=== PATIENT | male | born 1950 | race Caucasian/White ===

== ENCOUNTER 2017-06-14 20:46 | Inpatient (IN) | payer OTHER ==
[~2017-06-14] VITALS: Ht 170.2 cm; Wt 52.7 kg
[2017-06-14 21:08] LABS: BASOPHILS ABSOLUTE AUTO 0.03 K/mm3 (0.00-0.23); BASOPHILS PERCENT AUTO 0 % (0-2); EOSINOPHILS ABSOLUTE AUTO 0.03 K/mm3 (0.00-0.68); EOSINOPHILS PERCENT AUTO 0 % (0-6); Hematocrit 30.2 % (37.0-53.0); Hemoglobin 10.5 g/dL (13.5-17.5); IMMATURE GRAN ABSOLUTE AUTO 0.04 K/mm3 (0.00-0.10); IMMATURE GRAN PERCENT AUTO 1 % (0-1); LYMPHOCYTES PERCENT AUTO 15 % (21-46); MONOCYTES ABSOLUTE AUTO 1.35 K/mm3 (0.16-1.47); MONOCYTES PERCENT AUTO 17 % (4-13); Mean Corpuscular HGB 33.7 pg (26.0-34.0); Mean Corpuscular HGB Conc 34.8 g/dL (31.5-36.5); Mean Corpuscular Volume 97 fL (80-100); Mean Platelet Volume 9.8 fL (9.1-12.4); NEUTROPHILS ABSOLUTE AUTO 5.25 K/mm3 (1.96-9.15); NEUTROPHILS PERCENT AUTO 66 % (41-73); Platelet Count 227 K/mm3 (150-400); RDW Coefficient Variation 12.5 % (11.7-14.2); RDW Standard Deviation 44.1 fL (35.1-46.3); Red Blood Cell Count 3.12 M/mm3 (4.30-5.90)
[2017-06-14] MEDS ORDERED: ALBU90OI INH (21:21)
[2017-06-14] MEDS ORDERED: TUMS300 MG PO (21:22)
[2017-06-14] MEDS ORDERED: GABA100 PO (21:23)
[2017-06-14] MEDS ORDERED: LEVSOD50 PO (21:23)
[2017-06-14] MEDS ORDERED: PANT40 PO (21:23)
[2017-06-14] MEDS ORDERED: TAMS.4ER PO (21:24)
[2017-06-14] MEDS ORDERED: TRAZ100 PO (21:24)
[2017-06-14 21:36] LABS: Alanine Aminotransfer (ALT/SGP 25 U/L (12-78); Albumin, Blood 2.3 g/dL (3.4-5.0); Albumin/Globulin Ratio 0.8 (0.8-1.8); Alk Phos 61 U/L (50-136); Anion Gap 7 mmol/L (6-16); Aspartate Aminotrans (AST/SGOT 33 U/L (12-37); Bilirubin, Total 0.4 mg/dL (0.1-1.0); Blood Urea Nitrogen 20 mg/dL (8-24); Bun/Creatinine Ratio 24.9 (12.0-20.0); CO2, Blood 32 mmol/L (21-32); Calcium, Blood 7.5 mg/dL (8.5-10.1); Chloride, Blood 97 mmol/L (98-108); Globulin, Blood 2.8 g/dL (2.2-4.0); Glomerular Filtration Rate >60 (60-); Glucose, Blood 140 mg/dL (70-99); Potassium, Blood 2.8 mmol/L (3.5-5.5); Sodium, Blood 136 mmol/L (136-145); Total Protein, Blood 5.1 g/dL (6.4-8.2); Troponin I <0.015 ng/mL (0.000-0.040)
[2017-06-14 21:44] LABS: Source, Urine Clean Catch
[2017-06-14 21:47] LABS: Bilirubin, Urine Neg (Neg); Blood, Urine Neg (Neg); Glucose Qualitative, Urine 2+ (Neg); Ketones, Urine Neg (Neg); Leukocyte Esterase, Urine Neg (Neg); Nitrite, Urine Neg (Neg); Protein, Urine Neg (Neg); Urobilinogen, Urine 1+ (Normal)
[2017-06-14 21:49] LABS: Appearance, Urine Clear (Clear); Color, Urine Yellow (P-Yellow)
[2017-06-15 00:47] LABS: Influenza A Negative (NEGATIVE); Influenza B Negative (NEGATIVE)
[2017-06-15 01:01] LABS: Free Thyroxine 1.36 ng/dL (0.70-1.60); Magnesium, Blood 1.3 mg/dL (1.6-2.4); Thyroid Stimulating Hormone 1.7 uIU/mL (0.360-4.800); Triiodothyronine, Free 1.71 pg/mL (2.18-3.98)
[2017-06-15 06:43] LABS: BASOPHILS ABSOLUTE AUTO 0.02 K/mm3 (0.00-0.23); BASOPHILS PERCENT AUTO 0 % (0-2); EOSINOPHILS ABSOLUTE AUTO 0.01 K/mm3 (0.00-0.68); EOSINOPHILS PERCENT AUTO 0 % (0-6); Hematocrit 28.4 % (37.0-53.0); Hemoglobin 9.7 g/dL (13.5-17.5); IMMATURE GRAN ABSOLUTE AUTO 0.03 K/mm3 (0.00-0.10); IMMATURE GRAN PERCENT AUTO 1 % (0-1); LYMPHOCYTES ABSOLUTE AUTO 1.01 K/mm3 (0.84-5.20); LYMPHOCYTES PERCENT AUTO 16 % (21-46); MONOCYTES ABSOLUTE AUTO 0.87 K/mm3 (0.16-1.47); MONOCYTES PERCENT AUTO 13 % (4-13); Mean Corpuscular HGB 32.6 pg (26.0-34.0); Mean Corpuscular HGB Conc 34.2 g/dL (31.5-36.5); Mean Corpuscular Volume 95 fL (80-100); Mean Platelet Volume 10.1 fL (9.1-12.4); NEUTROPHILS ABSOLUTE AUTO 4.54 K/mm3 (1.96-9.15); NEUTROPHILS PERCENT AUTO 70 % (41-73); Platelet Count 210 K/mm3 (150-400); RDW Coefficient Variation 12.8 % (11.7-14.2); RDW Standard Deviation 44.4 fL (35.1-46.3); Red Blood Cell Count 2.98 M/mm3 (4.30-5.90); White Blood Cell Count 6.48 K/mm3 (4.00-11.30)
[2017-06-15 07:18] LABS: Anion Gap 9 mmol/L (6-16); Blood Urea Nitrogen 12 mg/dL (8-24); Bun/Creatinine Ratio 19.5 (12.0-20.0); CO2, Blood 28 mmol/L (21-32); Calcium, Blood 7.3 mg/dL (8.5-10.1); Chloride, Blood 100 mmol/L (98-108); Creatinine, Blood 0.62 mg/dL (0.60-1.20); Glomerular Filtration Rate >60 (60-); Glucose, Blood 136 mg/dL (70-99); Potassium, Blood 2.9 mmol/L (3.5-5.5); Sodium, Blood 137 mmol/L (136-145)
[2017-06-15 07:40] LABS: Magnesium, Blood 1.7 mg/dL (1.6-2.4)
[2017-06-15 07:41] LABS: Phosphorus, Blood 0.4 mg/dL (2.5-4.9)
[2017-06-15 08:34] LABS: U Amphetamine Screen Not Detected; U Barbituate Screen Not Detected; U Benzodiazapine Screen Not Detected; U Buprenorphine Screen Not Detected; U Cannabinoids Screen DETECTED; U Cocaine Screen Not Detected; U Methadone Screen Not Detected; U Methamphetamine Screen Not Detected; U Opiates Screen Not Detected; U Oxycodone Screen Not Detected; U Phencyclidine Screen Not Detected; U Propoxyphene Screen Not Detected
[2017-06-16 05:11] LABS: International Normalized Ratio 1.15
[2017-06-16 11:35] LABS: Anion Gap 6 mmol/L (6-16); Blood Urea Nitrogen 6 mg/dL (8-24); Bun/Creatinine Ratio 10.6 (12.0-20.0); CO2, Blood 28 mmol/L (21-32); Calcium, Blood 6.8 mg/dL (8.5-10.1); Chloride, Blood 106 mmol/L (98-108); Creatinine, Blood 0.56 mg/dL (0.60-1.20); Glomerular Filtration Rate >60 (60-); Glucose, Blood 103 mg/dL (70-99); Potassium, Blood 3.3 mmol/L (3.5-5.5); Sodium, Blood 140 mmol/L (136-145)
[2017-06-17 05:23] LABS: Anion Gap 6 mmol/L (6-16); Blood Urea Nitrogen 7 mg/dL (8-24); Bun/Creatinine Ratio 11.5 (12.0-20.0); CO2, Blood 31 mmol/L (21-32); Calcium, Blood 7.1 mg/dL (8.5-10.1); Chloride, Blood 101 mmol/L (98-108); Creatinine, Blood 0.61 mg/dL (0.60-1.20); Glomerular Filtration Rate >60 (60-); Glucose, Blood 94 mg/dL (70-99); Potassium, Blood 3.8 mmol/L (3.5-5.5); Sodium, Blood 138 mmol/L (136-145)
[2017-06-18 06:15] LABS: BASOPHILS ABSOLUTE AUTO 0.04 K/mm3 (0.00-0.23); BASOPHILS PERCENT AUTO 1 % (0-2); EOSINOPHILS ABSOLUTE AUTO 0.12 K/mm3 (0.00-0.68); EOSINOPHILS PERCENT AUTO 2 % (0-6); Hematocrit 29.8 % (37.0-53.0); Hemoglobin 10.1 g/dL (13.5-17.5); IMMATURE GRAN ABSOLUTE AUTO 0.05 K/mm3 (0.00-0.10); IMMATURE GRAN PERCENT AUTO 1 % (0-1); LYMPHOCYTES ABSOLUTE AUTO 1.28 K/mm3 (0.84-5.20); LYMPHOCYTES PERCENT AUTO 18 % (21-46); MONOCYTES ABSOLUTE AUTO 0.82 K/mm3 (0.16-1.47); MONOCYTES PERCENT AUTO 12 % (4-13); Mean Corpuscular HGB 33.2 pg (26.0-34.0); Mean Corpuscular HGB Conc 33.9 g/dL (31.5-36.5); Mean Corpuscular Volume 98 fL (80-100); Mean Platelet Volume 9.8 fL (9.1-12.4); NEUTROPHILS PERCENT AUTO 67 % (41-73); Platelet Count 360 K/mm3 (150-400); RDW Coefficient Variation 13.2 % (11.7-14.2); RDW Standard Deviation 47.2 fL (35.1-46.3); Red Blood Cell Count 3.04 M/mm3 (4.30-5.90); White Blood Cell Count 7.01 K/mm3 (4.00-11.30)
[2017-06-18 06:25] LABS: International Normalized Ratio 1.06
[2017-06-19 05:04] LABS: BASOPHILS ABSOLUTE AUTO 0.01 K/mm3 (0.00-0.23); BASOPHILS PERCENT AUTO 0 % (0-2); EOSINOPHILS PERCENT AUTO 0 % (0-6); Hematocrit 30.3 % (37.0-53.0); Hemoglobin 10.3 g/dL (13.5-17.5); IMMATURE GRAN ABSOLUTE AUTO 0.04 K/mm3 (0.00-0.10); IMMATURE GRAN PERCENT AUTO 1 % (0-1); LYMPHOCYTES ABSOLUTE AUTO 0.36 K/mm3 (0.84-5.20); LYMPHOCYTES PERCENT AUTO 5 % (21-46); MONOCYTES ABSOLUTE AUTO 0.06 K/mm3 (0.16-1.47); MONOCYTES PERCENT AUTO 1 % (4-13); Mean Corpuscular Volume 97 fL (80-100); Mean Platelet Volume 9.7 fL (9.1-12.4); NEUTROPHILS ABSOLUTE AUTO 6.72 K/mm3 (1.96-9.15); NEUTROPHILS PERCENT AUTO 94 % (41-73); Platelet Count 379 K/mm3 (150-400); RDW Coefficient Variation 13.2 % (11.7-14.2); RDW Standard Deviation 46.4 fL (35.1-46.3); Red Blood Cell Count 3.12 M/mm3 (4.30-5.90); White Blood Cell Count 7.19 K/mm3 (4.00-11.30)
[2017-06-19 05:25] LABS: Anion Gap 8 mmol/L (6-16); Blood Urea Nitrogen 13 mg/dL (8-24); Bun/Creatinine Ratio 21.2 (12.0-20.0); CO2, Blood 27 mmol/L (21-32); Calcium, Blood 8.6 mg/dL (8.5-10.1); Chloride, Blood 103 mmol/L (98-108); Creatinine, Blood 0.61 mg/dL (0.60-1.20); Glomerular Filtration Rate >60 (60-); Glucose, Blood 216 mg/dL (70-99); Potassium, Blood 4.1 mmol/L (3.5-5.5); Sodium, Blood 138 mmol/L (136-145)
[2017-06-19] MEDS ORDERED: Albuterol2.5 MG/0.5 INH (10:49)
[2017-06-19] MEDS ORDERED: ACET325 PO (10:50)
[2017-06-19] MEDS ORDERED: BENZ100A PO (10:51)
== END 2017-06-19 11:35 | disposition home or self-care (01) | DRG 181 ==
LOC: ER 20:46 → PCU 23:00 → ICUW 23:00 → PCU 06-15 00:37 → ICUW 06-15 11:37 → PCU 06-15 16:04
PROVIDERS: Emergency Medicine; Family Medicine; Hospitalist; Internal Medicine; Internal Medicine Critical Care Medicine
PROC: 0BD78ZX Extraction of Left Main Bronchus, Via Natural or Artificial Opening Endoscopic, Diagnostic (ICD-10-PCS; principal; 2017-06-18 17:00)
DX: C34.12 Malignant neoplasm of upper lobe, left bronchus or lung (principal); E46 Unspecified protein-calorie malnutrition; I95.9 Hypotension, unspecified; I85.00 Esophageal varices without bleeding; R64 Cachexia; E83.39 Other disorders of phosphorus metabolism; E83.42 Hypomagnesemia; K70.30 Alcoholic cirrhosis of liver without ascites; J44.0 Chronic obstructive pulmonary disease with (acute) lower respiratory infection; F10.20 Alcohol dependence, uncomplicated; J20.9 Acute bronchitis, unspecified; E03.9 Hypothyroidism, unspecified
CPT/HCPCS: 36415; 71260; 80048; 80053; 80069; 81003; 82272; 82533; 82728; 83540; 83550; 83605; 83735; 83880; 84100; 84439; 84443; 84481; 84484; 85025; 85379; 85610; 87040; 87070; 87205; 87804; 88108; 88305; 88341; 88342; 93005; 93010; 94640; 94760; 96365; 96366; 97110; 97116; 97162; 97530; 99285; G8978; G8979; J1650; J1940; J2001; J2250; J2370; J2930; J3010; J3411; J3475; J3480; J7040; J7042; J7050; J7120; P9041; Q2038; Q9967

== ENCOUNTER 2019-08-03 15:33 | Inpatient (IN) | payer OTHER ==
[~2019-08-03] VITALS: Ht 170.2 cm; Wt 50.2 kg
[~2019-08-03 15:33] MED LIST: ACET325 PO; ALBU90OI INH; Albuterol2.5 MG/0.5 INH; BENZ100A PO; GABA100 PO; LEVSOD50 PO; PANT40 PO; TAMS.4ER PO; TRAZ100 PO; TUMS500 MG PO
[2019-08-03] MEDS ORDERED: MELATONIN5 M1 PO (15:58)
[2019-08-03 17:18] LABS: BASOPHILS ABSOLUTE AUTO 0.06 K/mm3 (0.00-0.23); BASOPHILS PERCENT AUTO 1 % (0-2); EOSINOPHILS ABSOLUTE AUTO 0.09 K/mm3 (0.00-0.68); EOSINOPHILS PERCENT AUTO 1 % (0-6); Hematocrit 39.1 % (37.0-53.0); Hemoglobin 12.7 g/dL (13.5-17.5); IMMATURE GRAN ABSOLUTE AUTO 0.04 K/mm3 (0.00-0.10); IMMATURE GRAN PERCENT AUTO 0 % (0-1); LYMPHOCYTES ABSOLUTE AUTO 1.14 K/mm3 (0.84-5.20); LYMPHOCYTES PERCENT AUTO 9 % (21-46); MONOCYTES ABSOLUTE AUTO 0.88 K/mm3 (0.16-1.47); MONOCYTES PERCENT AUTO 7 % (4-13); Mean Corpuscular HGB 33.2 pg (26.0-34.0); Mean Corpuscular HGB Conc 32.5 g/dL (31.5-36.5); Mean Corpuscular Volume 102 fL (80-100); Mean Platelet Volume 9.5 fL (9.1-12.4); NEUTROPHILS ABSOLUTE AUTO 10.12 K/mm3 (1.96-9.15); NEUTROPHILS PERCENT AUTO 82 % (41-73); Platelet Count 218 K/mm3 (150-400); RDW Coefficient Variation 13.3 % (11.7-14.2); Red Blood Cell Count 3.82 M/mm3 (4.30-5.90); White Blood Cell Count 12.33 K/mm3 (4.00-11.30)
[2019-08-03 17:28] LABS: Alanine Aminotransfer (ALT/SGP 33 U/L (12-78); Albumin, Blood 3.3 g/dL (3.4-5.0); Albumin/Globulin Ratio 0.8 (0.8-1.8); Alk Phos 121 U/L (50-136); Anion Gap 3 mmol/L (6-16); Aspartate Aminotrans (AST/SGOT 46 U/L (12-37); Bilirubin, Total 0.9 mg/dL (0.1-1.0); Blood Urea Nitrogen 12 mg/dL (8-24); CO2, Blood 33 mmol/L (21-32); Calcium, Blood 9.5 mg/dL (8.5-10.1); Chloride, Blood 102 mmol/L (98-108); Globulin, Blood 4.4 g/dL (2.2-4.0); Glomerular Filtration Rate >60 (60-); Glucose, Blood 109 mg/dL (70-99); Potassium, Blood 3.8 mmol/L (3.5-5.5); Sodium, Blood 138 mmol/L (136-145); Total Protein, Blood 7.7 g/dL (6.4-8.2); Troponin I <0.015 ng/mL (0.000-0.040)
[2019-08-03 18:44] LABS: Influenza A Negative (NEGATIVE); Influenza B Negative (NEGATIVE)
--- NOTE | 2019-08-04 04:07 | NUR ---
SHIFT SUMMARY PT WAS NEW ER ADMIT THIS SHIFT, REPORT REC FROM TOLL BOOTH OPERATOR, PT TO ROOM @ 2250, STATED WITHIN MINUTES THAT HE FELT HE MAY BE EXPERIENCING WITHDRAWL, PT STATES THAT HE HAS 5-6 OR MORE DRINKS DAILY BUT HASN'T X2 DAYS. CIWA OF 12 REPORTED TO RUBEN @ 4200, LIBRIUM ADMIN, NO NEW ORDERS REC, TREMOURS IMPROVED, HEADACHE IMPROVED, PT BEDRESTING AT THIS TIME, NO OTHER C/O ANY KIND, WILL CONT TO MONITOR UNTIL REPORT GIVEN TO DAY RN.
[2019-08-04 05:15] LABS: Adenovirus Not Detected (NOT DETECT); Coronavirus 229E Not Detected (NOT DETECT)
[2019-08-04 05:16] LABS: Coronavirus HKU1 Not Detected (NOT DETECT); Coronavirus NL63 Not Detected (NOT DETECT); Coronavirus OC43 Not Detected (NOT DETECT); Human Metapneumovirus Not Detected (NOT DETECT); Human Rhinovirus/Enterovirus Not Detected (NOT DETECT); Influenza B Not Detected (NOT DETECT); Parainfluenza Virus 1 Not Detected (NOT DETECT); Parainfluenza Virus 2 Not Detected (NOT DETECT); Parainfluenza Virus 3 Not Detected (NOT DETECT); Parainfluenza Virus 4 Not Detected (NOT DETECT)
[2019-08-04 05:17] LABS: Bordetella pertussis Not Detected (NOT DETECT); Chlamydophila pneumoniae Not Detected (NOT DETECT); Influenza A/2009-H1 Not Detected (NOT DETECT); Influenza A/H1 Not Detected (NOT DETECT); Influenza A/H3 Not Detected (NOT DETECT); Mycoplasma pneumoniae Not Detected (NOT DETECT); Respiratory Syncytial Virus Not Detected (NOT DETECT)
[2019-08-04 07:19] LABS: Hematocrit 39.4 % (37.0-53.0); Hemoglobin 12.8 g/dL (13.5-17.5); Mean Corpuscular HGB 32.9 pg (26.0-34.0); Mean Corpuscular HGB Conc 32.5 g/dL (31.5-36.5); Mean Corpuscular Volume 101 fL (80-100); Platelet Count 194 K/mm3 (150-400); RDW Standard Deviation 48.2 fL (35.1-46.3); Red Blood Cell Count 3.89 M/mm3 (4.30-5.90); White Blood Cell Count 7.66 K/mm3 (4.00-11.30)
[2019-08-04 07:28] LABS: Alanine Aminotransfer (ALT/SGP 39 U/L (12-78); Albumin/Globulin Ratio 0.7 (0.8-1.8); Alk Phos 111 U/L (50-136); Anion Gap 5 mmol/L (6-16); Aspartate Aminotrans (AST/SGOT 67 U/L (12-37); Bilirubin, Total 0.8 mg/dL (0.1-1.0); Blood Urea Nitrogen 14 mg/dL (8-24); Bun/Creatinine Ratio 26.2 (12.0-20.0); CO2, Blood 33 mmol/L (21-32); Calcium, Blood 9.1 mg/dL (8.5-10.1); Chloride, Blood 99 mmol/L (98-108); Creatinine, Blood 0.54 mg/dL (0.60-1.20); Globulin, Blood 4.5 g/dL (2.2-4.0); Glomerular Filtration Rate >60 (60-); Glucose, Blood 125 mg/dL (70-99); Potassium, Blood 3.7 mmol/L (3.5-5.5); Sodium, Blood 137 mmol/L (136-145); Total Protein, Blood 7.5 g/dL (6.4-8.2)
--- NOTE | 2019-08-04 17:35 | NUR ---
Shift Summary A/Ox3, pleasant and cooperative. Patient uses call light appropriately. Medicated for 5-6/10 headache x 2, CIWA score of about 11 x 1 per emar with good results. So far, CIWA has remained < 5. Denies any other pain, nausea, vomiting at this time. Patient eager to go home. Continues to produce opaque thick sputum, medicated with Robitussin x 1. No other concerns at this time. Will continue to monitor.
--- NOTE | 2019-08-05 07:19 | NUR ---
68 year old [employer] [place] with hx of lung cancer and latent TB carrier was admitted with COPD and ETOH withdrawl. Medicated x 1 for CIWA score with 50 mg librium with helpful effect. PT has hx of alcoholism tx 1.5 years ago with 6 months sobriety. Encourarage ETOH and tobacco cessation. Has Sister who asks to be involved in DC plan. Lives alone and has caregiver 2 days a week.
--- NOTE | 2019-08-05 20:05 | NUR ---
SHIFT SUMMARY PT RESTING QUIETLY DURING SHIFT REPORT. APPEARED WEAK, BUT VERY PLEASANT AND GRATEFUL FOR CARE. PT REQUESTED RT TX'S A COUPLE OF TIMES TODAY; HX OF ADVANCED COPE. PT ALSO REPORTED PAIN AND NAUSEA, MIDSTERNUM, AFTER EATING A COUPLE OF TIMES. PT WITH HX OF ETOH ABUSE AND POSSIBLE ULCERS. DR STEVENSON IN TO SEE PT THIS AM. REQUESTED TO SEE PT TX BEFORE D/C. PT VERY WEAK AND UNSTEADY GETTING UP AND USING FWW. PT/OT ORDERED TO ASSIST PT IN GETTING STRONGER AND MORE MOBILE PT REPORTED THAT HE LIVES BY HIMSELF. PT/OT ORDERED, BUT UNCLEAR IF THEY WERE ABLE TO SEE PT TODAY OR NOT. PT HAS BEEN CONTINENT AND INCONTINENT, ATTEMPTING TO USE URINAL IN BED. PT ALSO WITH POOR APPETITE; OFFERED NUTRITIONAL CHOICES. PT'S SISTER IN TO SEE HIM TODAY. PT REPORTED THAT SISTER LIVES ONE MILE FROM HIM. REQUESTED COUGH MED FOR HS. DENIED FURTHER NEEDS. REPORT GIVEN TO ONCOMING SHIFT.
--- NOTE | 2019-08-05 22:50 | NUR ---
RT IN FOR BREATHING TX. PATIENT NOW RESTING IN BED. CALL LIGHT IN REACH.
--- NOTE | 2019-08-06 03:16 | NUR ---
SHIFT SUMMARY PATIENT HAD NO ACUTE CHANGES OBSERVED THIS SHIFT. AXOX 3 AND ONE ASSIST WITH FWW TO BSC. SOB W/EXERTION. USES URINAL AT BEDSIDE. VSS/AFEBRILE. DENIES PAIN AND N/V. REPORTED COUGH X TWO AND GUAIFENESIN 10 mL GIVEN PER EMAR PER EVENT. PATIENT REPORTED RELIEF AND ABLE TO SLEEP. RT IN FOR MULTIPLE BREATHING TX. USES O2 2.5 L PRN AT NIGHT; NOT THIS SHIFT. CALL LIGHT IN REACH. BED IN LOWEST POSITION. WILL CONTINUE TO MONITOR UNTIL DAY SHIFT NURSE ASSUMES CARE.
--- NOTE | 2019-08-06 08:32 | NUR ---
CHARTING HAZARDOUS SUBSTANCES ENGINEER 2 STUDENT
--- NOTE | 2019-08-06 19:05 | NUR ---
NO ACUTE CHANGES NOTED THIS SHIFT, WILL CONTINUE TO MONITOR AND REPORT TO ONCOMING RN
--- NOTE | 2019-08-06 22:10 | NUR ---
PATIENT RESTING IN BED. PATIENT UP WITH ONE ASSIST TO BR. PATIENT NOT REMEMBERING TO PULL CORD LIGHT IN BR WHEN FINISHED. PATIENT REMINDED AND ASSISTED BACK INTO BED. DENIES PAIN AND N/V. REPORTS COUGH AT THIS TIME. CALL LIGHT IN REACH. BED ALARM ACTIVATED.
--- NOTE | 2019-08-07 03:16 | NUR ---
SHIFT SUMMARY PATIENT HAD NO ACUTE CHANGES OBSERVED. AXOX 3 AND ONE ASSIST TO BR. USES URINAL AT BS. TAKES MEDICATION WHOLE WITH WATER. PIV REMAINS INTACT. VSS/AFEBRILE. DENIES PAIN AND N/V. REPORTED COUGH AND GUAIFENESIN GIVEN PER EMAR. RT IN FOR BREATHING TX. SLEPT AFTER WATCHING TV. COOPERATIVE WITH CARE. CALL LIGHT IN REACH. BED IN LOWEST POSITION. WILL CONTINUE TO MONITOR UNTIL DAY SHIFT NURSE ASSUMES CARE.
[2019-08-07] MEDS ORDERED: FLUTICASONE-SA1 EAC1 INH (10:56)
[2019-08-07] MEDS ORDERED: Prednisone10 MG PO (10:57)
--- NOTE | 2019-08-07 16:54 | NUR ---
DISCHARGE NOTE- VERBAL AND WRITTEN DISCHARGE INSTRUCTIONS PROVIDED AND THE PT AND HIS SISTER ACKNOWLEDGED UNDERSTANDING OF THEM, IV DC'D AT THE TIME OF DISCHARGE AND PT ESCORTED OUT VIA WC BY THE GATHERING WORKER. NO FURTHER QUESTIONS AT THE TIME OF DISCHARGE.
== END 2019-08-07 15:25 | disposition home health service (06) | DRG 189 ==
LOC: ER 15:33 → MEDS 21:09 → ENPENDDIS 08-07 10:00 → MEDS 08-07 15:25
PROVIDERS: Physician Assistant; ADMIT Internal Medicine
DX: J96.21 Acute and chronic respiratory failure with hypoxia (principal); E43 Unspecified severe protein-calorie malnutrition; J44.1 Chronic obstructive pulmonary disease with (acute) exacerbation; F10.239 Alcohol dependence with withdrawal, unspecified; Z68.1 Body mass index [BMI] 19.9 or less, adult; B96.3 Hemophilus influenzae [H. influenzae] as the cause of diseases classified elsewhere; F32.9 Major depressive disorder, single episode, unspecified; K70.30 Alcoholic cirrhosis of liver without ascites; K21.9 Gastro-esophageal reflux disease without esophagitis; I25.10 Atherosclerotic heart disease of native coronary artery without angina pectoris; F17.210 Nicotine dependence, cigarettes, uncomplicated; Z86.73 Personal history of transient ischemic attack (TIA), and cerebral infarction without residual deficits; Z99.81 Dependence on supplemental oxygen
CPT/HCPCS: 0099U; 36415; 71046; 80053; 84145; 84484; 85025; 85027; 87070; 87077; 87185; 87205; 87804; 93005; 93010; 94010; 94640; 94644; 94664; 94667; 94760; 97110; 97116; 97162; 97165; 97530; 97535; 98960; 99285-25; 99407; J1650; J2405; J2930; J7512

== ENCOUNTER 2019-08-30 12:16 | Observation (INO) | payer OTHER, MEDICARE ==
[~2019-08-30] VITALS: Ht 167.6 cm; Wt 49.8 kg
[~2019-08-30 12:16] MED LIST changes: +FLUTICASONE-SA1 EAC1 INH; -GABA100 PO; +GABA400 PO; +MELATONIN5 M1 PO; +Prednisone10 MG PO
[2019-08-30 13:01] LABS: BASOPHILS ABSOLUTE AUTO 0.06 K/mm3 (0.00-0.23); BASOPHILS PERCENT AUTO 1 % (0-2); EOSINOPHILS ABSOLUTE AUTO 0.14 K/mm3 (0.00-0.68); EOSINOPHILS PERCENT AUTO 2 % (0-6); Hemoglobin 15.6 g/dL (13.5-17.5); IMMATURE GRAN ABSOLUTE AUTO 0.02 K/mm3 (0.00-0.10); IMMATURE GRAN PERCENT AUTO 0 % (0-1); LYMPHOCYTES ABSOLUTE AUTO 2.54 K/mm3 (0.84-5.20); LYMPHOCYTES PERCENT AUTO 27 % (21-46); MONOCYTES ABSOLUTE AUTO 0.72 K/mm3 (0.16-1.47); MONOCYTES PERCENT AUTO 8 % (4-13); Mean Corpuscular HGB 31.7 pg (26.0-34.0); Mean Corpuscular HGB Conc 33.2 g/dL (31.5-36.5); Mean Corpuscular Volume 96 fL (80-100); Mean Platelet Volume 9.3 fL (9.1-12.4); NEUTROPHILS ABSOLUTE AUTO 6.08 K/mm3 (1.96-9.15); NEUTROPHILS PERCENT AUTO 64 % (41-73); Platelet Count 414 K/mm3 (150-400); RDW Coefficient Variation 13.2 % (11.7-14.2); RDW Standard Deviation 46.5 fL (35.1-46.3); Red Blood Cell Count 4.92 M/mm3 (4.30-5.90); White Blood Cell Count 9.56 K/mm3 (4.00-11.30)
[2019-08-30 13:25] LABS: Alanine Aminotransfer (ALT/SGP 36 U/L (12-78); Albumin, Blood 3.4 g/dL (3.4-5.0); Albumin/Globulin Ratio 0.8 (0.8-1.8); Alk Phos 106 U/L (50-136); Anion Gap 11 mmol/L (6-16); Aspartate Aminotrans (AST/SGOT 44 U/L (12-37); Bilirubin, Total 0.5 mg/dL (0.1-1.0); Blood Urea Nitrogen 10 mg/dL (8-24); Bun/Creatinine Ratio 13.7 (12.0-20.0); CO2, Blood 27 mmol/L (21-32); Chloride, Blood 100 mmol/L (98-108); Creatinine, Blood 0.73 mg/dL (0.60-1.20); Globulin, Blood 4.5 g/dL (2.2-4.0); Glomerular Filtration Rate >60 (60-); Glucose, Blood 113 mg/dL (70-99); Potassium, Blood 3.9 mmol/L (3.5-5.5); Sodium, Blood 138 mmol/L (136-145); Total Protein, Blood 7.9 g/dL (6.4-8.2); Troponin I <0.015 ng/mL (0.000-0.040)
[2019-08-30] MEDS ORDERED: BUDE6HFA INH (13:51)
[2019-08-30 14:58] LABS: Magnesium, Blood 1.8 mg/dL (1.6-2.4); Phosphorus, Blood 3.1 mg/dL (2.5-4.9)
--- NOTE | 2019-08-30 17:03 | NUR ---
ADMIT REPORT RECEIVED FROM ER. PT ARRIVED VIA GURNEY ACCOMPANIED BY RN. PT AWAKE AND ALERT. HE REQUESTED TO BE SLID TO NEW BED. USED SLIDER AND 3 ASSIST. DIRECTOR OF MARKETING AND PROMOTIONS PLACED PER ORDER. AFIB HR 150BPM NOTED ON MONITOR. BP STABLE. CARDIZEM GTT STARTED AT 15MG/HR. PT HAD RECEIVED 1 BOLUS IN ER @1230. PT UP TO BSC WITH 1 ASSIST. WEAK AND SHAKE. VOIDED SMALL AMOUNT OF DARK, YELLOW URINE. CALLED DR NESBITT TO CLARIFY ORDERS AND REPORT LACTIC ACID LEVEL. ORDERS RECEIVED. DR NESBITT ORDERED BANANAN BAG. PT HAS VERY SMALL, FRAGILE VEINS. HE HAS NEEDED A POWER GLIDE IN THE PAST. CALLED PROCEDURE NURSE AND REQUESTED A POWER GLIDE PLACMENT FOR INCOMPATIBLE MEDICATIONS AND LABS. CONTINEU POT.
[2019-08-30 19:20] LABS: Adenovirus Not Detected (NOT DETECT); Bordetella pertussis Not Detected (NOT DETECT); Chlamydophila pneumoniae Not Detected (NOT DETECT); Coronavirus 229E Not Detected (NOT DETECT); Coronavirus HKU1 Not Detected (NOT DETECT); Coronavirus NL63 Not Detected (NOT DETECT); Coronavirus OC43 Not Detected (NOT DETECT); Human Metapneumovirus Not Detected (NOT DETECT); Human Rhinovirus/Enterovirus Not Detected (NOT DETECT); Influenza A/2009-H1 Not Detected (NOT DETECT); Influenza A/H1 Not Detected (NOT DETECT); Influenza A/H3 Not Detected (NOT DETECT); Influenza B Not Detected (NOT DETECT); Mycoplasma pneumoniae Not Detected (NOT DETECT); Parainfluenza Virus 1 Not Detected (NOT DETECT); Parainfluenza Virus 2 Not Detected (NOT DETECT); Parainfluenza Virus 3 Not Detected (NOT DETECT); Parainfluenza Virus 4 Not Detected (NOT DETECT); Respiratory Syncytial Virus Not Detected (NOT DETECT)
--- NOTE | 2019-08-30 22:13 | NUR ---
CHECKED ON PT DUE TO SUSTAINING IN 120'S AND SHOOTING UP INTO THE 130'S VIA TT. APICAL HR CHECK SHOWS 104 HR. PT GRUNTING AND C/O ABDOMINAL PAIN 6/10 ON INSPIRATION, STATES HE HAS NEVER FELT THAT BEFORE. PLACED ON 02 AT 1L/NC FOR WOB. DENIES FURTHER NEEDS OR WANTS AT THIS TIME. SAFETY MEASUES IN PLACE. WILL CONTINUE TO MONITOR.
--- NOTE | 2019-08-31 02:37 | NUR ---
RESTING WITH EYES CLOSED IN SEMI FOWLERS. CADIZEM TITRATED BACK TO 5MG/HR AFTER HR LOWERED FROM 120'S/130'S TO 70'S. DENEIS FURTHER NEEDS OR WANTS AT THIS TIME. SAFETY MEASURES IN PLACE. WILL CONTINUE TO MONITOR.
[2019-08-31 05:08] LABS: BASOPHILS ABSOLUTE AUTO 0.01 K/mm3 (0.00-0.23); BASOPHILS PERCENT AUTO 0 % (0-2); EOSINOPHILS PERCENT AUTO 0 % (0-6); Hematocrit 35.4 % (37.0-53.0); IMMATURE GRAN ABSOLUTE AUTO 0.02 K/mm3 (0.00-0.10); IMMATURE GRAN PERCENT AUTO 0 % (0-1); LYMPHOCYTES ABSOLUTE AUTO 0.88 K/mm3 (0.84-5.20); LYMPHOCYTES PERCENT AUTO 14 % (21-46); MONOCYTES ABSOLUTE AUTO 0.43 K/mm3 (0.16-1.47); MONOCYTES PERCENT AUTO 7 % (4-13); Mean Corpuscular HGB 31.9 pg (26.0-34.0); Mean Corpuscular HGB Conc 33.9 g/dL (31.5-36.5); Mean Corpuscular Volume 94 fL (80-100); Mean Platelet Volume 9.7 fL (9.1-12.4); NEUTROPHILS ABSOLUTE AUTO 4.99 K/mm3 (1.96-9.15); NEUTROPHILS PERCENT AUTO 79 % (41-73); Platelet Count 309 K/mm3 (150-400); RDW Coefficient Variation 12.7 % (11.7-14.2); RDW Standard Deviation 44.4 fL (35.1-46.3); Red Blood Cell Count 3.76 M/mm3 (4.30-5.90); White Blood Cell Count 6.33 K/mm3 (4.00-11.30)
[2019-08-31 05:30] LABS: Anion Gap 6 mmol/L (6-16); Blood Urea Nitrogen 12 mg/dL (8-24); Bun/Creatinine Ratio 18.2 (12.0-20.0); CO2, Blood 27 mmol/L (21-32); Chloride, Blood 104 mmol/L (98-108); Creatinine, Blood 0.66 mg/dL (0.60-1.20); Glomerular Filtration Rate >60 (60-); Glucose, Blood 130 mg/dL (70-99); Magnesium, Blood 2.1 mg/dL (1.6-2.4); Phosphorus, Blood 2.3 mg/dL (2.5-4.9); Potassium, Blood 4.4 mmol/L (3.5-5.5); Sodium, Blood 137 mmol/L (136-145); Troponin I <0.015 ng/mL (0.000-0.040)
--- NOTE | 2019-08-31 06:11 | NUR ---
SHIFT SUMMARY LYING WITH EYES CLOSED IN SEMI FOWLERS, HAS RESTED WELL. ABLE TO REPOSITION SELF IN BED. HR HAS FLUCTUATED THROUGH SHIFT, HR INCREASED TO 120'S SUSTAINED, BUT THEN WOULD REACH 130'S. CARDIZEM TITRATED TO 10MG/HR UNTIL HR SUSTAINED IN THE 70'S, THEN WAS TITRATED BACK TO 5MG/HR. HAS DENIES SOB OR C/P. DENIES FURTHER NEEDS OR WANTS AT THIS TIME. SAFETY MEASURES IN PLACE. WILL GIVE HAND OFF TO ONCOMING SHIFT USING SBAR DURING BEDSIDE REPORT.
--- NOTE | 2019-08-31 18:37 | NUR ---
NOTE PT ALERT AND ORIENTED. AFIB. RATE CONTROLLED. TRANSITIONED FROM CARIDZEM GTT TO PO. PT BP STABLE. CIWA LESS THAN 4 ALL DAY. PT DID ASK FOR LIBRIUM FOR "THE SHAKES". MEDICATED WITH LIBRIUM 25MG X1. EFFECTIVE. PT EXPRESSED DESIRE TO GO TO ETOH REHAB. [facility]. HE CALLED HIS PLANER OPERATOR TO REQUEST TREATMENT. DENIED PAIN. NO DIARRHEA. UNABLE TO SEND CDIFF R/O. H/L. CONTINUE POT.
--- NOTE | 2019-08-31 21:31 | NUR ---
CODE STATUS Had conversation with pt at start of shift regarding code status. In chart, pt orders state DNR and DNR wrist band in place. Upon conversation with pt, he states he would like to change code status to Full code. Pt states he would like CPR, Medications, Defib, and intubation. He states "I just don't want to be a vegateble". pt is fully alert and oriented. Provider called and updated on pt wishes. Code status order changed at this time. DNR wrist band removed.
[2019-09-01 05:10] LABS: BASOPHILS ABSOLUTE AUTO 0.01 K/mm3 (0.00-0.23); BASOPHILS PERCENT AUTO 0 % (0-2); EOSINOPHILS PERCENT AUTO 0 % (0-6); Hematocrit 34.9 % (37.0-53.0); Hemoglobin 11.7 g/dL (13.5-17.5); IMMATURE GRAN ABSOLUTE AUTO 0.03 K/mm3 (0.00-0.10); IMMATURE GRAN PERCENT AUTO 0 % (0-1); LYMPHOCYTES ABSOLUTE AUTO 1.23 K/mm3 (0.84-5.20); LYMPHOCYTES PERCENT AUTO 11 % (21-46); MONOCYTES ABSOLUTE AUTO 0.81 K/mm3 (0.16-1.47); MONOCYTES PERCENT AUTO 7 % (4-13); Mean Corpuscular HGB 32.6 pg (26.0-34.0); Mean Corpuscular HGB Conc 33.5 g/dL (31.5-36.5); Mean Platelet Volume 9.6 fL (9.1-12.4); NEUTROPHILS ABSOLUTE AUTO 9.47 K/mm3 (1.96-9.15); NEUTROPHILS PERCENT AUTO 82 % (41-73); Platelet Count 314 K/mm3 (150-400); RDW Coefficient Variation 12.7 % (11.7-14.2); RDW Standard Deviation 45.7 fL (35.1-46.3); Red Blood Cell Count 3.59 M/mm3 (4.30-5.90); White Blood Cell Count 11.55 K/mm3 (4.00-11.30)
[2019-09-01 05:11] LABS: Mean Corpuscular Volume 97 fL (80-100)
--- NOTE | 2019-09-01 05:26 | NUR ---
Shift Summary Pt with no acute events overnight. Pt remains in a-fib, rate was highests this shift in the 80's and has averaged in 60's. PO cardizem and PO metoprolol given at approx 2215 (late d/t low BP at 2100). Pt sleeping approx 9 hrs this shift. VSS. Alert and oriented, pleasant, calm and cooperative with care. Pt CIWA has been 4-6 this shift, ativan given per pt request x1 this shift. No acute concerns to note and no changes from initial shift assessment. Will continue to monitor.
[2019-09-01 05:28] LABS: Anion Gap 5 mmol/L (6-16); Blood Urea Nitrogen 12 mg/dL (8-24); Bun/Creatinine Ratio 17.1 (12.0-20.0); CO2, Blood 28 mmol/L (21-32); Calcium, Blood 8.4 mg/dL (8.5-10.1); Chloride, Blood 106 mmol/L (98-108); Glomerular Filtration Rate >60 (60-); Glucose, Blood 114 mg/dL (70-99); Magnesium, Blood 2.1 mg/dL (1.6-2.4); Phosphorus, Blood 2.3 mg/dL (2.5-4.9); Potassium, Blood 3.8 mmol/L (3.5-5.5); Sodium, Blood 139 mmol/L (136-145)
[2019-09-01] MEDS ORDERED: ACET325 PO (09:46)
[2019-09-01] MEDS ORDERED: DILT30 PO (09:49)
[2019-09-01] MEDS ORDERED: FAMO20 PO (09:54)
[2019-09-01] MEDS ORDERED: LACT PO (09:54)
[2019-09-01] MEDS ORDERED: LEVFLO500 PO (09:55)
[2019-09-01] MEDS ORDERED: LOPE2C PO (09:56)
[2019-09-01] MEDS ORDERED: METO25ER PO (09:58)
[2019-09-01] MEDS ORDERED: Nicoderm Cq1 EAC1 TD (09:59)
[2019-09-01] MEDS ORDERED: ONDA4ODT PO (10:07)
[2019-09-01] MEDS ORDERED: PRED20 PO (10:10)
[2019-09-01] MEDS ORDERED: XARELTO20 MG PO ×2 (10:13→15:47)
[2019-09-01] MEDS ORDERED: Aspir-Trin325 MG PO (15:46)
--- NOTE | 2019-09-01 18:45 | NUR ---
SHIFT SUMMARY PT A&Ox4; CALM AND COOPERATIVE WITH CARE. PT REPORTS "MILD ANXIETY" THIS AM. PT RESTING IN BED FOR MAJORITY OF SHIFT, UP ON SIDE OF BED FOR MEALS; UP SBA IN ROOM. PT REPORTS "A LITTLE BIT" OF SOB THIS AM WITH CHEST PRESSURE; PT STATES THIS HAS HAPPENED OVER THE LAST 1-2 YEARS AND "I JUST HIT MY CHEST A COUPLE TIMES AND IT GOES AWAY"; DR MCKEE NOTIFIED. SPO2 >90% PT ON 2L O2 THIS AM, AFTER SLEEPING AND ON RA FOR MAJORITY OF SHIFT. PT DENIES PAIN, NAUSEA AND DIZZINESS T/O SHIFT. PT BP LOW AT TIMES; NOTIFIED DR NESBITT, ORDERS TO CONTINUE WITH DISCHARGE. PT CIWA 4-6 T/O SHIFT. OTHER VSS. NO OTHER ACUTE CHANGES NOTED DURING SHIFT. PT EDUCATED ON DISCHARGE INSTUCTIONS, FOLLOW UP APPOINTMENTS, MEDICATIONS, AND HOW TO TAKE AND MONITOR BLOOD PRESSURE. PRESCRIPTIONS TO [facility]; PT EDUCATED ON VS PARAMETERS FOR CARDIAC MEDICATIONS, STATES SISTER HAS A BLOOD PRESSURE MACHINE HE COULD BORROW; EDUCATED PT TO WRITE DOWN BP EVERY AM AND DISCUSSED HOLDING PARAMETERS, PT EXPRESSED UNDERSTANDING BY REPEATING THE HOLD PARAMETERS. PT EDUCATED THAT [facility] HAS INPATIENT PROGRAM FOR DETOX AND [facility] STATES THEY EOULD BE WILL TO TAKE HIM AT THE END OF THE MONTH, PT EDUCATED TO GO TO URGENT LATER THIS MONTH AND RQUEST DETOX PROGRAM. PT LEFT ROOM VIA WHEEL CHAIR AT 1705. PT SISTER PICKING PT UP TO TAKE HOME.
== END 2019-09-01 17:06 | disposition home or self-care (01) ==
LOC: ER 12:16 → PCU 12:17
PROVIDERS: Emergency Medicine; ADMIT Family Medicine
DX: J96.21 Acute and chronic respiratory failure with hypoxia (principal); I48.0 Paroxysmal atrial fibrillation; F10.20 Alcohol dependence, uncomplicated; E87.2 Acidosis; K21.9 Gastro-esophageal reflux disease without esophagitis; J43.9 Emphysema, unspecified; G47.00 Insomnia, unspecified; F17.210 Nicotine dependence, cigarettes, uncomplicated; Z88.0 Allergy status to penicillin; Z79.01 Long term (current) use of anticoagulants; Z79.899 Other long term (current) drug therapy
CPT/HCPCS: 0099U; 36415; 71045; 80048; 80053; 82150; 83605; 83690; 83735; 84100; 84145; 84484; 85025; 86140; 93005; 93010; 93306; 94640; 94761; 94762; 96361; 96365; 96366; 96367; 96374; 96375; 99285-25; A9270-GY; C1751; G0378; G0480; J2060; J3411; J3475; J7030; J7042; J7512

== ENCOUNTER 2019-09-17 15:06 | Emergency (ER) | payer OTHER, MEDICARE ==
[~2019-09-17] VITALS: Ht 167.6 cm; Wt 50.4 kg
[~2019-09-17 15:06] MED LIST changes: +Aspir-Trin325 MG PO; +BUDE6HFA INH; +DILT30 PO; +FAMO20 PO; +LACT PO; +LEVFLO500 PO; +LOPE2C PO; +METO25ER PO; +Nicoderm Cq1 EAC1 TD; +ONDA4ODT PO; +PRED20 PO; +XARELTO20 MG PO
[2019-09-17 15:51] LABS: BASOPHILS ABSOLUTE AUTO 0.05 K/mm3 (0.00-0.23); BASOPHILS PERCENT AUTO 1 % (0-2); EOSINOPHILS ABSOLUTE AUTO 0.05 K/mm3 (0.00-0.68); EOSINOPHILS PERCENT AUTO 1 % (0-6); Hematocrit 36.2 % (37.0-53.0); Hemoglobin 11.6 g/dL (13.5-17.5); IMMATURE GRAN ABSOLUTE AUTO 0.05 K/mm3 (0.00-0.10); IMMATURE GRAN PERCENT AUTO 1 % (0-1); LYMPHOCYTES ABSOLUTE AUTO 1.64 K/mm3 (0.84-5.20); LYMPHOCYTES PERCENT AUTO 15 % (21-46); MONOCYTES PERCENT AUTO 9 % (4-13); Mean Corpuscular HGB 31.2 pg (26.0-34.0); Mean Corpuscular Volume 97 fL (80-100); Mean Platelet Volume 9.9 fL (9.1-12.4); NEUTROPHILS ABSOLUTE AUTO 7.92 K/mm3 (1.96-9.15); NEUTROPHILS PERCENT AUTO 74 % (41-73); Platelet Count 249 K/mm3 (150-400); RDW Coefficient Variation 13.4 % (11.7-14.2); Red Blood Cell Count 3.72 M/mm3 (4.30-5.90); White Blood Cell Count 10.71 K/mm3 (4.00-11.30)
[2019-09-17 16:03] LABS: Alanine Aminotransfer (ALT/SGP 38 U/L (12-78); Albumin, Blood 3.1 g/dL (3.4-5.0); Albumin/Globulin Ratio 0.8 (0.8-1.8); Alk Phos 72 U/L (50-136); Anion Gap 2 mmol/L (6-16); Aspartate Aminotrans (AST/SGOT 53 U/L (12-37); Bilirubin, Total 0.4 mg/dL (0.1-1.0); Blood Urea Nitrogen 14 mg/dL (8-24); Bun/Creatinine Ratio 22.4 (12.0-20.0); CO2, Blood 36 mmol/L (21-32); Chloride, Blood 105 mmol/L (98-108); Creatinine, Blood 0.63 mg/dL (0.60-1.20); Globulin, Blood 3.9 g/dL (2.2-4.0); Glomerular Filtration Rate >60 (60-); Glucose, Blood 93 mg/dL (70-99); Potassium, Blood 3.7 mmol/L (3.5-5.5); Sodium, Blood 143 mmol/L (136-145); Troponin I <0.015 ng/mL (0.000-0.040)
[2019-09-17 16:51] LABS: Base Excess Venous 11.6 mmol/L; Bicarbonate Venous 33.8 mmol/L (24.0-30.0); PCO2 Venous 50.9 mmHg (38-42); PO2 Venous 75.3 mmHg (38-42); pH Blood Venous 7.45 (7.34-7.37)
[2019-09-17] MEDS ORDERED: ALDACTONE100 M1 PO (17:50)
[2019-09-17] MEDS ORDERED: Ventolin/Prove6.7 GM INH (18:35)
== END 2019-09-17 19:13 | disposition home or self-care (01) ==
LOC: ER 15:06
PROVIDERS: Emergency Medicine; Physician Assistant
DX: K70.30 Alcoholic cirrhosis of liver without ascites (principal); F10.20 Alcohol dependence, uncomplicated; R60.0 Localized edema; J44.9 Chronic obstructive pulmonary disease, unspecified; I48.0 Paroxysmal atrial fibrillation; K21.9 Gastro-esophageal reflux disease without esophagitis; F17.210 Nicotine dependence, cigarettes, uncomplicated; Z88.0 Allergy status to penicillin; Z79.899 Other long term (current) drug therapy; Z79.51 Long term (current) use of inhaled steroids; Z79.82 Long term (current) use of aspirin
CPT/HCPCS: 36415; 71045; 71260; 80053; 82803; 83880; 84484; 85025; 93005; 93010; 93970; 99285-25; Q9967

== ENCOUNTER 2019-10-30 15:24 | Inpatient (IN) | payer OTHER, MEDICARE ==
[~2019-10-30] VITALS: Ht 170.2 cm; Wt 48.2 kg
[~2019-10-30 15:24] MED LIST changes: +ALDACTONE100 M1 PO; +ASPI325EC PO; -Aspir-Trin325 MG PO; +Ventolin/Prove6.7 GM INH
[2019-10-30 16:06] LABS: Base Excess Venous -0.9 mmol/L; Bicarbonate Venous 23.8 mmol/L (24.0-30.0); PCO2 Venous 37.8 mmHg (38-42); PO2 Venous 93.5 mmHg (38-42); pH Blood Venous 7.41 (7.34-7.37)
[2019-10-30 16:09] LABS: BASOPHILS ABSOLUTE AUTO 0.04 K/mm3 (0.00-0.23); BASOPHILS PERCENT AUTO 0 % (0-2); EOSINOPHILS ABSOLUTE AUTO 0.01 K/mm3 (0.00-0.68); EOSINOPHILS PERCENT AUTO 0 % (0-6); Hematocrit 38.8 % (37.0-53.0); Hemoglobin 12.8 g/dL (13.5-17.5); IMMATURE GRAN ABSOLUTE AUTO 0.04 K/mm3 (0.00-0.10); IMMATURE GRAN PERCENT AUTO 0 % (0-1); LYMPHOCYTES ABSOLUTE AUTO 0.57 K/mm3 (0.84-5.20); LYMPHOCYTES PERCENT AUTO 5 % (21-46); MONOCYTES ABSOLUTE AUTO 0.76 K/mm3 (0.16-1.47); MONOCYTES PERCENT AUTO 7 % (4-13); Mean Corpuscular HGB 32.2 pg (26.0-34.0); Mean Corpuscular Volume 98 fL (80-100); NEUTROPHILS ABSOLUTE AUTO 9.66 K/mm3 (1.96-9.15); NEUTROPHILS PERCENT AUTO 87 % (41-73); RDW Coefficient Variation 15.6 % (11.7-14.2); RDW Standard Deviation 55.7 fL (35.1-46.3); Red Blood Cell Count 3.98 M/mm3 (4.30-5.90); White Blood Cell Count 11.08 K/mm3 (4.00-11.30)
[2019-10-30 16:20] LABS: Mean Platelet Volume 9.8 fL (9.1-12.4); Platelet Count 152 K/mm3 (150-400)
[2019-10-30 16:31] LABS: Alanine Aminotransfer (ALT/SGP 56 U/L (12-78); Albumin, Blood 3.3 g/dL (3.4-5.0); Albumin/Globulin Ratio 0.8 (0.8-1.8); Alk Phos 117 U/L (50-136); Anion Gap 14 mmol/L (6-16); Aspartate Aminotrans (AST/SGOT 68 U/L (12-37); Blood Urea Nitrogen 11 mg/dL (8-24); Bun/Creatinine Ratio 21.4 (12.0-20.0); CO2, Blood 23 mmol/L (21-32); Calcium, Blood 8.4 mg/dL (8.5-10.1); Chloride, Blood 96 mmol/L (98-108); Creatinine, Blood 0.51 mg/dL (0.60-1.20); Globulin, Blood 4.2 g/dL (2.2-4.0); Glomerular Filtration Rate >60 (60-); Glucose, Blood 72 mg/dL (70-99); Potassium, Blood 3.8 mmol/L (3.5-5.5); Sodium, Blood 133 mmol/L (136-145); Total Protein, Blood 7.5 g/dL (6.4-8.2); Troponin I <0.015 ng/mL (0.000-0.040)
[2019-10-31 00:46] LABS: Adenovirus Not Detected (NOT DETECT); Bordetella pertussis Not Detected (NOT DETECT); Chlamydophila pneumoniae Not Detected (NOT DETECT); Coronavirus 229E Not Detected (NOT DETECT); Coronavirus HKU1 Not Detected (NOT DETECT); Coronavirus NL63 Not Detected (NOT DETECT); Coronavirus OC43 Not Detected (NOT DETECT); Human Metapneumovirus Not Detected (NOT DETECT); Human Rhinovirus/Enterovirus Not Detected (NOT DETECT); Influenza A/2009-H1 Not Detected (NOT DETECT); Influenza A/H1 Not Detected (NOT DETECT); Influenza A/H3 Not Detected (NOT DETECT); Influenza B Not Detected (NOT DETECT); Mycoplasma pneumoniae Not Detected (NOT DETECT); Parainfluenza Virus 1 Not Detected (NOT DETECT); Parainfluenza Virus 2 Not Detected (NOT DETECT); Parainfluenza Virus 3 Not Detected (NOT DETECT); Parainfluenza Virus 4 Not Detected (NOT DETECT); Respiratory Syncytial Virus Not Detected (NOT DETECT)
--- NOTE | 2019-10-31 07:18 | NUR ---
PCU ADMIT / SHIFT SUMMARY PT BROUGHT TO PCU-02 FROM ER BY AMBIKA @ APPROX 2300. PT A&O X4. PT ABLE TO WEAKLY STAND AND PIVOT FROM RNEY TO PCU BED W/ 1 PERSON ASSIST. PT REPORTS USING CANE OR WALKER @ HOME BASELINE. SPO2 > 92% ON 2.5L NC WHICH PT REPORTS HOME O2 USE. MONITOR SHOWS SR W/ PAC's UPON ARRIVAL TO UNIT W/ PT CONVERSION FROM NSR TO AFIB @ APPROX 0500, HR 90's-110's. PT REPORTS DRINKING "ABOUT 6 SMALL WINE COOLERS" DAILY. PT BUE TREMULOUS. PT REPORTS HEADACHE T/O SHIFT & REPORTS GETTING MIGRAINES FREQUENTLY. CIWA 5 THIS SHIFT. NS GTT INFUSING PER ORDERS. REPORT GIVEN TO DAY SHIFT RN.
--- NOTE | 2019-10-31 08:30 | NUR ---
DR JUAN HERE TO SEE PT, DISCUSSED PT'S STATUS. DISCUSSED PT REQ TO HAVE GABAPENTIN.
--- NOTE | 2019-10-31 12:32 | NUR ---
PT TO BE TRANSFERRED TO MEDICAL FLOOR ROOM 342. REPORT GIVEN TO NURSE QUINTERO WHO WILL BE TAKING OVER CARE. PT TO BE SENT WITH TELE.
--- NOTE | 2019-10-31 12:39 | NUR ---
PT TRANSFERRED TO MEDICAL FLOOR ROOM [address]
--- NOTE | 2019-10-31 17:03 | NUR ---
SHIFT SUMMARY PCU TRANSFER THIS AFTERNOON. PATIENT SETTLED INTO ROOM. DENIES PAIN, NAUSEA, AND SHORTNESS OF BREATH. PATIENT UP SBA TO BATHROOM/USES URINAL AT BEDSIDE. CIWA'S RANGING FROM 3-5 THIS SHIFT. PATIENT OCCASSIONALLY FORGETFULLY AND TREMULOUS IN HANDS. PATIENT PLEASANT AND COOPERATIVE WITH CARE. CALL LIGHT IN REACH.
--- NOTE | 2019-11-01 04:10 | NUR ---
SHIFT SUMMARY PT HAS HAD NO ACUTE CHANGES THIS SHIFT, REQ SOMETHING FOR SLEEP- REC ORDER FOR MELATONIIN PRN, PT SLEPT T/O THE NIGHT AFTER ADMIN; PT REPORTS FEELING CONFUSED OCCASIONALLY BUT SEEMS TO EASILY REORIENT HIMSELF; ANUP HELD THIS SHIFT FOR BP 98/64; PT SLEEPING, CALL LIGHT IN REACH, WILL CONT TO MONITOR UNTIL REPORT GIVEN TO DAY RN.
--- NOTE | 2019-11-01 18:28 | NUR ---
SUMMARY PT HAS BEEN A/O X4 T/O DAY, HE STATES CALM, HE HAS HAND TREMORS HOWEVER NO OTHER ETOH W/D SYMPTOMS @ THIS TIME. DX COPD EXAC, PNEUM. ANTI BX & STEROIDS HAVE BEEN CHANGED TO ORAL FORM. LUNGS DECREASED T/O, HE HAS INTERMITTANT WHEEZE TODAY, NO SIGNIFICANT SOB, HAS CALLED FOR NEB TX ONLY ONCE. HIGH VOLTAGE ELECTRICIAN TOOK HIM FOR WALK IN HALLS W/O SOB. BIOX HIGH 90'S ON RA. PLEASANT AFFECT T/O DAY, VSS/AFEBRILE.
--- NOTE | 2019-11-01 22:06 | NUR ---
PT ALERT AND ORIENTED. DENIED PAIN. NO NOTED ACUTE DISTRESS. IV MOT PATENT, UNSUCCESSFUL ATTEMPT TO PLACE ANOTHER ONE. CHARGE NURSE TO ASSIST LATER. CALL LIGHT IN REACH
--- NOTE | 2019-11-02 04:35 | NUR ---
SHIFT SUMMARY CIWAS CONTINUE - SCORES REMAIN LOW 2-3 RANGE. OTHER THAN HAND TREMORS, NO NOTED SIGNS OF WITHDRAWL. ALERT AND ORIENTED. RECEIVED IV ANTIBIOTICS. CALL LIGHT IN REACH.
--- NOTE | 2019-11-02 05:56 | NUR ---
PT DISPLAYING INCREASED CONFUSION. NURSE NOTIFIED.
--- NOTE | 2019-11-02 07:21 | NUR ---
ASSUMED PATENT CARE. PATIENT RESTING COMFORTABLY IN BED, CONVERSING WITH NURSING STAFF. NO SIGNS OF ACUTE DISTRESS, WCTM.
[2019-11-02] MEDS ORDERED: GABA300 PO (10:50)
[2019-11-02] MEDS ORDERED: FLUTICASONE-SA1 EAC2 INH (10:54)
--- NOTE | 2019-11-02 13:42 | NUR ---
PATIENT PROVIDED DISCHARGE INFO REGARDING FOLLOW UP PLANS, REASONS TO RETURN TO THE HOSPITAL, AND EDUCATION REGARDING NEW MEDICATIONS. PATIENT VERBALIZED UNDERSTANDING. NO SIGNS OF ACUTE DISTRESS, PATIENT TRANSPORTED OUT VIA WHEELCHAIR.
== END 2019-11-02 13:52 | disposition home or self-care (01) | DRG 871 ==
LOC: ER 15:24 → PCU 21:51 → MEDS 10-31 12:44 → ENPENDDIS 11-02 12:49 → MEDS 11-02 13:52
PROVIDERS: Emergency Medicine; ADMIT Family Medicine
DX: A41.9 Sepsis, unspecified organism (principal); J96.21 Acute and chronic respiratory failure with hypoxia; J96.22 Acute and chronic respiratory failure with hypercapnia; J18.9 Pneumonia, unspecified organism; J44.1 Chronic obstructive pulmonary disease with (acute) exacerbation; J44.0 Chronic obstructive pulmonary disease with (acute) lower respiratory infection; E87.1 Hypo-osmolality and hyponatremia; I48.0 Paroxysmal atrial fibrillation; E83.42 Hypomagnesemia; G62.9 Polyneuropathy, unspecified; D64.9 Anemia, unspecified; K74.60 Unspecified cirrhosis of liver; F17.210 Nicotine dependence, cigarettes, uncomplicated; F10.20 Alcohol dependence, uncomplicated; Z88.0 Allergy status to penicillin; Z99.81 Dependence on supplemental oxygen; Z92.21 Personal history of antineoplastic chemotherapy; Z92.3 Personal history of irradiation; Z85.118 Personal history of other malignant neoplasm of bronchus and lung; Z79.82 Long term (current) use of aspirin
CPT/HCPCS: 0099U; 36415; 71045; 71260; 80053; 82140; 82803; 83690; 83735; 83880; 84484; 85025; 93005; 93010; 94640; 94760; 96374-59; 96375-59; 96376-59; 99285-25; A9270; J0696; J1650; J2405; J2930; J3475; J7030; J7050; J7512; Q9967; U0002

== ENCOUNTER 2019-11-13 14:42 | Emergency (ER) | payer OTHER, MEDICARE ==
[~2019-11-13] VITALS: Ht 167.6 cm; Wt 52.2 kg
[~2019-11-13 14:42] MED LIST changes: +FLUTICASONE-SA1 EAC2 INH; +GABA300 PO
[2019-11-13 16:00] LABS: BASOPHILS ABSOLUTE AUTO 0.06 K/mm3 (0.00-0.23); BASOPHILS PERCENT AUTO 1 % (0-2); EOSINOPHILS ABSOLUTE AUTO 0.07 K/mm3 (0.00-0.68); EOSINOPHILS PERCENT AUTO 1 % (0-6); Hemoglobin 12.6 g/dL (13.5-17.5); IMMATURE GRAN ABSOLUTE AUTO 0.04 K/mm3 (0.00-0.10); IMMATURE GRAN PERCENT AUTO 0 % (0-1); LYMPHOCYTES ABSOLUTE AUTO 2.63 K/mm3 (0.84-5.20); LYMPHOCYTES PERCENT AUTO 24 % (21-46); MONOCYTES ABSOLUTE AUTO 0.94 K/mm3 (0.16-1.47); MONOCYTES PERCENT AUTO 9 % (4-13); Mean Corpuscular HGB 32.7 pg (26.0-34.0); Mean Corpuscular HGB Conc 33.2 g/dL (31.5-36.5); Mean Corpuscular Volume 99 fL (80-100); Mean Platelet Volume 9.2 fL (9.1-12.4); NEUTROPHILS ABSOLUTE AUTO 7.18 K/mm3 (1.96-9.15); NEUTROPHILS PERCENT AUTO 66 % (41-73); Platelet Count 335 K/mm3 (150-400); RDW Coefficient Variation 16.7 % (11.7-14.2); RDW Standard Deviation 60.3 fL (35.1-46.3); Red Blood Cell Count 3.85 M/mm3 (4.30-5.90); White Blood Cell Count 10.92 K/mm3 (4.00-11.30)
[2019-11-13 16:23] LABS: Alanine Aminotransfer (ALT/SGP 93 U/L (12-78); Albumin, Blood 3.2 g/dL (3.4-5.0); Albumin/Globulin Ratio 0.8 (0.8-1.8); Alk Phos 120 U/L (50-136); Anion Gap 8 mmol/L (6-16); Aspartate Aminotrans (AST/SGOT 69 U/L (12-37); Bilirubin, Total 0.6 mg/dL (0.1-1.0); Blood Urea Nitrogen 6 mg/dL (8-24); Bun/Creatinine Ratio 12.6 (12.0-20.0); CO2, Blood 24 mmol/L (21-32); Calcium, Blood 8.3 mg/dL (8.5-10.1); Chloride, Blood 107 mmol/L (98-108); Creatinine, Blood 0.48 mg/dL (0.60-1.20); Glomerular Filtration Rate >60 (60-); Glucose, Blood 82 mg/dL (70-99); Potassium, Blood 4.1 mmol/L (3.5-5.5); Sodium, Blood 139 mmol/L (136-145); Total Protein, Blood 7.2 g/dL (6.4-8.2); Troponin I <0.015 ng/mL (0.000-0.040)
== END 2019-11-13 19:07 | disposition left against medical advice (07) ==
LOC: ER 14:42
PROVIDERS: Emergency Medicine
DX: Z53.21 Procedure and treatment not carried out due to patient leaving prior to being seen by health care provider (principal)
CPT/HCPCS: 36415; 71046; 80053; 84484; 85025; 93005; 93010

== ENCOUNTER 2020-06-20 19:15 | Emergency (ER) | payer OTHER, MEDICARE ==
[~2020-06-20] VITALS: Ht 167.6 cm; Wt 49.9 kg
[~2020-06-20 19:15] MED LIST changes: +BUDE.25 INH; +Nicoderm Cq1 EAC1 TOP; +OMEP20ER PO; +SPIR50 PO
[2020-06-20 20:06] LABS: BASOPHILS ABSOLUTE AUTO 0.08 K/mm3 (0.00-0.23); BASOPHILS PERCENT AUTO 2 % (0-2); EOSINOPHILS ABSOLUTE AUTO 0.02 K/mm3 (0.00-0.68); EOSINOPHILS PERCENT AUTO 0 % (0-6); Hematocrit 43.6 % (37.0-53.0); Hemoglobin 14.2 g/dL (13.5-17.5); IMMATURE GRAN ABSOLUTE AUTO 0.02 K/mm3 (0.00-0.10); IMMATURE GRAN PERCENT AUTO 0 % (0-1); LYMPHOCYTES ABSOLUTE AUTO 1.75 K/mm3 (0.84-5.20); LYMPHOCYTES PERCENT AUTO 35 % (21-46); MONOCYTES ABSOLUTE AUTO 0.29 K/mm3 (0.16-1.47); MONOCYTES PERCENT AUTO 6 % (4-13); Mean Corpuscular HGB Conc 32.6 g/dL (31.5-36.5); Mean Corpuscular Volume 101 fL (80-100); Mean Platelet Volume 9.3 fL (9.1-12.4); NEUTROPHILS ABSOLUTE AUTO 2.79 K/mm3 (1.96-9.15); NEUTROPHILS PERCENT AUTO 56 % (41-73); Platelet Count 279 K/mm3 (150-400); RDW Coefficient Variation 14.6 % (11.7-14.2); RDW Standard Deviation 55.3 fL (35.1-46.3); White Blood Cell Count 4.95 K/mm3 (4.00-11.30)
[2020-06-20 20:28] LABS: Alanine Aminotransfer (ALT/SGP 85 U/L (12-78); Albumin, Blood 4.1 g/dL (3.4-5.0); Alk Phos 149 U/L (50-136); Anion Gap 6 mmol/L (6-16); Aspartate Aminotrans (AST/SGOT 120 U/L (12-37); Blood Urea Nitrogen 6 mg/dL (8-24); Bun/Creatinine Ratio 11.9 (12.0-20.0); CO2, Blood 28 mmol/L (21-32); Calcium, Blood 9.2 mg/dL (8.5-10.1); Chloride, Blood 102 mmol/L (98-108); Creatinine, Blood 0.51 mg/dL (0.60-1.20); Globulin, Blood 4.1 g/dL (2.2-4.0); Glomerular Filtration Rate >60 (60-); Glucose, Blood 85 mg/dL (70-99); Potassium, Blood 4.3 mmol/L (3.5-5.5); Sodium, Blood 136 mmol/L (136-145); Total Protein, Blood 8.2 g/dL (6.4-8.2)
[2020-06-20 23:38] LABS: Magnesium, Blood 1.9 mg/dL (1.6-2.4); Troponin I <0.015 ng/mL (0.000-0.040)
[2020-06-21 01:03] LABS: Base Excess Venous 3.1 mmol/L; Bicarbonate Venous 25.9 mmol/L (24.0-30.0); PCO2 Venous 47.8 mmHg (38-42); PO2 Venous 40.6 mmHg (38-42); pH Blood Venous 7.38 (7.34-7.37)
[2020-06-21] MEDS ORDERED: Prednisone50 MG PO (01:23)
[2020-06-21] MEDS ORDERED: AMOCLA875 PO (01:23)
== END 2020-06-21 01:38 | disposition home or self-care (01) ==
LOC: ER 19:15
PROVIDERS: Emergency Medicine; Physician Assistant
DX: J44.1 Chronic obstructive pulmonary disease with (acute) exacerbation (principal); K80.20 Calculus of gallbladder without cholecystitis without obstruction; R74.01 Elevation of levels of liver transaminase levels; Z79.51 Long term (current) use of inhaled steroids; Z79.899 Other long term (current) drug therapy
CPT/HCPCS: 36415; 71046; 76705; 80053; 82803; 83690; 83735; 83880; 84484; 85025; 93005; 93010; 94644; 99285-25; J7512